=== PATIENT | female | born 1970 | race Caucasian/White ===

== ENCOUNTER 2016-12-30 00:36 | Emergency (ER) | payer MEDICAID ==
[~2016-12-30] VITALS: Ht 149.9 cm; Wt 68.0 kg
[2016-12-30 01:20] VITALS: BP_SYST 125
[2016-12-30] MEDS ORDERED: NACL 0.9% 1,000 ML IV ONE (02:21)
[2016-12-30 03:04] LABS: BASOPHILS % (AUTO) 0.3 % (0.0-2.0); EOSINOPHILS # (AUTO) 0.1 K/uL (0.0-0.4); EOSINOPHILS % (AUTO) 1.1 % (0.0-4.0); HEMATOCRIT 38.6 % (36-48); HEMOGLOBIN 12.9 g/dL (12.0-16.0); LYMPHOCYTES # (AUTO) 1.4 K/uL (1.0-5.5); LYMPHOCYTES % (AUTO) 22.3 % (20.5-51.5); MEAN CORPUSCULAR HEMOGLOBIN 29 pg (27-31); MEAN CORPUSCULAR HGB CONC 34 % (32-36); MEAN CORPUSCULAR VOLUME 87 fL (79.0-98.0); MONOCYTES # (AUTO) 0.4 K/uL (0.0-1.0); MONOCYTES % (AUTO) 6.9 % (1.7-9.3); NEUTROPHILS # (AUTO) 4.3 K/uL (1.8-7.7); NEUTROPHILS % (AUTO) 69.4 % (40.0-70.0); PLATELET COUNT (AUTO) 233 K/uL (130-430); RED BLOOD CELL COUNT(AUTO) 4.46 MIL/uL (4.2-6.2); RED CELL DISTRIBUTION WIDTH 12.6 % (9.0-15.0); WHITE BLOOD COUNT (AUTO) 6.2 K/uL (4.8-10.8)
[2016-12-30 03:07] LABS: CALCIUM 8.9 mg/dL (8.4-11.0); CHLORIDE 106 mmol/L (98-107); CREATININE 0.86 mg/dL (0.55-1.30); GLUCOSE 105 mg/dL (70-99); POTASSIUM 4.2 mmol/L (3.5-5.1); SODIUM SERUM 137 mmol/L (136-145); UREA NITROGEN, BLOOD 14 mg/dL (8-21)
[2016-12-30 03:11] LABS: INR 1.1 (0.8-1.2); PROTHROMBIN TIME 11.5 SECS (9.5-12.5)
[2016-12-30 03:12] LABS: ALANINE AMINOTRANSFERASE 41 U/L (12-78); ALBUMIN 3.6 g/dL (3.4-4.8); ASPARTATE AMINOTRANSFERASE 28 U/L (10-37); LIPASE 158 U/L (73-393); TOTAL BILIRUBIN 0.3 mg/dL (0.0-1.0); TOTAL PROTEIN, SERUM 6.9 g/dL (6.4-8.3)
[2016-12-30 03:19] LABS: ANION GAP < 3 (5-15); GFR AFRICAN AMERICAN 92 mL/min (>90)
[2016-12-30 03:43] LABS: BILIRUBIN,URINE NEGATIVE (NEGATIVE); BLOOD, URINE NEGATIVE (NEGATIVE); CLARITY/URINE CLEAR (CLEAR); COLOR,URINE YELLOW (YELLOW); GLUCOSE,URINE NEGATIVE (NEGATIVE); KETONES,URINE NEGATIVE (NEGATIVE); LEUKOCYTE ESTERASE ,URINE NEGATIVE (NEGATIVE); NITRITE, URINE NEGATIVE (NEGATIVE); PH,URINE 5.5 (5.0-8.0); PROTEIN URINE NEGATIVE (NEGATIVE); UROBILINOGEN,URINE 0.2 (0.2-1.0)
[2016-12-30] MEDS ORDERED: KETOROLAC TROMETHAMINE 30 MG VIAL IVP ONE (03:45)
[2016-12-30] MEDS ORDERED: PROCHLORPERAZINE EDISYLATE 10 MG/2 ML VIAL IM ONE (03:45)
[2016-12-30] MEDS ORDERED: PROCHLORPERAZINE EDISYLATE 10 MG/2 ML VIAL IVP ONE (03:45)
[2016-12-30] MEDS ORDERED: KETOROLAC TROMETHAMINE 60 MG/2 ML VIAL IM ONE (03:45)
[2016-12-30] MEDS ORDERED: KETOROLAC TROMETHAMINE 30 MG VIAL ONE (03:50)
[2016-12-30 05:00] VITALS: BP_SYST 120
== END 2016-12-30 05:00 | disposition home or self-care (01) ==
LOC: SED 00:36
DX: R51 Headache (principal); R11.2 Nausea with vomiting, unspecified; T40.4X5A Adverse effect of other synthetic narcotics, initial encounter; Y92.89 Other specified places as the place of occurrence of the external cause
CPT/HCPCS: 36415; 80053; 81003; 83690; 85025; 85610; 85730; 96361; 96374; 96375; 99284; J0780; J1885; J7030

== ENCOUNTER 2017-01-14 11:25 | Emergency (ER) | payer MEDICAID ==
[~2017-01-14] VITALS: Ht 149.9 cm; Wt 68.5 kg
[2017-01-14 11:25] VITALS: BP_SYST 111
--- NOTE | 2017-01-14 11:25 | NUR ---
Pt placed to ER bed 07, report given to LASHELL Butler.
[2017-01-14] MEDS ORDERED: PROCHLORPERAZINE EDISYLATE 10 MG/2 ML VIAL IVP ONE (11:30)
[2017-01-14] MEDS ORDERED: NACL 0.9% 500 ML IV ONE (11:30)
[2017-01-14] MEDS ORDERED: KETOROLAC TROMETHAMINE 30 MG VIAL IVP ONE (11:30)
[2017-01-14] MEDS ORDERED: DIPHENHYDRAMINE INJ 50 MG/ML VIAL IVP ONE (11:30)
[2017-01-14] MEDS ORDERED: DEXAMETHASONE SOD PHOSPHATE 10 MG/ML VIAL IVP ONE (11:30)
--- NOTE | 2017-01-14 11:30 | NUR ---
ER at bedside examining patient.
--- NOTE | 2017-01-14 11:34 | NUR ---
Emely murillo in [facility] - 01/14/17 at 1223 by BERT ANNETTE Romano at bedside examining patient.
--- NOTE | 2017-01-14 11:34 | NUR ---
PATIENT TO ER BED 7. AT BEDSIDE.PER THE PATIENT HAD ON AND OFF FEVER, HEADACHE AND MID ABDOMINAL PAIN FOR 3 DAYS NOW.COMPLAINING OF N/V,ABDOMINAL PAIN AND HEADACHE 9/10.NO ABDOMINAL DISTENTION;WITH ACTIVE BOWEL SOUNDS TO ALL QUADRANTS;AFEBRILE.NO OTHER COMPLAIN/INJURIES PER PATIENT AND NOTED
[2017-01-14 11:53] LABS: BASOPHILS # (AUTO) 0.2 K/uL (0.0-0.2); BASOPHILS % (AUTO) 2.8 % (0.0-2.0); EOSINOPHILS # (AUTO) 0.2 K/uL (0.0-0.4); EOSINOPHILS % (AUTO) 2.8 % (0.0-4.0); HEMATOCRIT 41.5 % (36-48); LYMPHOCYTES # (AUTO) 1.7 K/uL (1.0-5.5); MEAN CORPUSCULAR HEMOGLOBIN 29 pg (27-31); MEAN CORPUSCULAR HGB CONC 34 % (32-36); MEAN CORPUSCULAR VOLUME 85 fL (79.0-98.0); MONOCYTES # (AUTO) 0.4 K/uL (0.0-1.0); MONOCYTES % (AUTO) 7.7 % (1.7-9.3); NEUTROPHILS # (AUTO) 3.2 K/uL (1.8-7.7); NEUTROPHILS % (AUTO) 56.7 % (40.0-70.0); PLATELET COUNT (AUTO) 262 K/uL (130-430); RED BLOOD CELL COUNT(AUTO) 4.86 MIL/uL (4.2-6.2); RED CELL DISTRIBUTION WIDTH 12.8 % (9.0-15.0); WHITE BLOOD COUNT (AUTO) 5.7 K/uL (4.8-10.8)
[2017-01-14 11:56] LABS: CALCIUM 8.6 mg/dL (8.4-11.0); CREATININE 0.78 mg/dL (0.55-1.30); POTASSIUM 3.6 mmol/L (3.5-5.1)
[2017-01-14 12:00] LABS: ALBUMIN 3.9 g/dL (3.4-4.8); TOTAL BILIRUBIN 0.5 mg/dL (0.0-1.0); TOTAL PROTEIN, SERUM 7.5 g/dL (6.4-8.3)
[2017-01-14 12:21] LABS: BILIRUBIN,URINE NEGATIVE (NEGATIVE); BLOOD, URINE 3+ (NEGATIVE); CLARITY/URINE CLEAR (CLEAR); COLOR,URINE YELLOW (YELLOW); GLUCOSE,URINE NEGATIVE (NEGATIVE); KETONES,URINE NEGATIVE (NEGATIVE); LEUKOCYTE ESTERASE ,URINE NEGATIVE (NEGATIVE); NITRITE, URINE NEGATIVE (NEGATIVE); PROTEIN URINE NEGATIVE (NEGATIVE); UROBILINOGEN,URINE 0.2 (0.2-1.0)
[2017-01-14 12:37] LABS: BACTERIA,URINE FEW /HPF (None Seen); MUCUS,URINE None Seen /LPF (None Seen); WBC,URINE 0-3 /HPF (0-3)
[2017-01-14] MEDS ORDERED: MAG HYDROX/AL HYDROX/SIMETH 30 ML, LIDOCAINE VISCOUS 2% 15ML (PO) 10 ML, BELLADONNA ALK... PO ONE ×6 (12:45)
--- NOTE | 2017-01-14 13:25 | NUR ---
Patient given written and verbal discharge instructions and verbalizes understanding. ER MD discussed with patient the results and treatment provided. Patient in stable condition. ID arm band removed. IV catheter removed intact and dressing applied, no active bleeding. Rx of Motrin, zofran given. Patient educated on pain management and to follow up with PMD. Pain Scale 3/10. Discussed with patient need to follow with establish relationship with PCP and the possiblity of following with a specialist. Opportunity for questions provided and answered.
[2017-01-14 13:28] VITALS: BP_SYST 136
== END 2017-01-14 13:28 | disposition home or self-care (01) ==
LOC: SED 11:25
DX: R51 Headache (principal); R11.2 Nausea with vomiting, unspecified; R19.7 Diarrhea, unspecified; R10.13 Epigastric pain
CPT/HCPCS: 36415; 80053; 81000; 81025; 83690; 85025; 96361; 96374; 96375; 99284; J0780; J1100; J1885; J2001; J7040

== ENCOUNTER 2017-04-05 22:26 | Emergency (ER) | payer MEDICAID ==
[~2017-04-05] VITALS: Ht 149.9 cm; Wt 68.9 kg
[2017-04-05 22:37] VITALS: BP_SYST 128
[2017-04-06] MEDS ORDERED: IBUPROFEN 600 MG TABLET PO ONE
[2017-04-06 00:10] VITALS: BP_SYST 125
== END 2017-04-06 00:10 | disposition home or self-care (01) ==
LOC: SED 22:26
DX: S83.412A Sprain of medial collateral ligament of left knee, initial encounter (principal); W01.0XXA Fall on same level from slipping, tripping and stumbling without subsequent striking against object, initial encounter; Y93.89 Activity, other specified; Y92.89 Other specified places as the place of occurrence of the external cause; Y99.8 Other external cause status
CPT/HCPCS: 73564; 99284

== ENCOUNTER 2017-04-17 21:49 | Emergency (ER) | payer MEDICAID ==
[~2017-04-17] VITALS: Ht 152.4 cm; Wt 68.0 kg
[2017-04-17 21:50] VITALS: BP_SYST 113
--- NOTE | 2017-04-17 21:50 | NUR ---
Patient to ER bed 7 to gown for evaluation. Side rails up. Report given to Adriane LOBO.
--- NOTE | 2017-04-17 21:57 | NUR ---
Patient returns for ER C/O left knee continuous pain 02/20 when walking and she is requesting additional days off work. Patient was instructed when the injury occured to see primary physician and an orthopedic doctor for continuing treatment. AAOx4, unlabored breathing, no signs of acute distress.
--- NOTE | 2017-04-17 22:04 | NUR ---
ANNETTE HOLBROOK Kwaw at bedside evaluating the patient
[2017-04-17 22:20] VITALS: BP_SYST 121
--- NOTE | 2017-04-17 22:20 | NUR ---
Patient given written and verbal discharge instructions and verbalizes understanding. ER MD Weaver discussed with patient the results and treatment provided. Patient in stable condition. ID arm band removed. Rx of Naproxen given. Patient educated on pain management and to follow up with PMD. Pain Scale 0/10. Opportunity for questions provided and answered.
== END 2017-04-17 22:20 | disposition home or self-care (01) ==
LOC: SED 21:49
DX: S83.92XA Sprain of unspecified site of left knee, initial encounter (principal); W19.XXXA Unspecified fall, initial encounter; Y93.89 Activity, other specified; Y92.89 Other specified places as the place of occurrence of the external cause; Y99.8 Other external cause status
CPT/HCPCS: 99282

== ENCOUNTER 2017-07-06 17:46 | Emergency (ER) | payer MEDICAID, OTHER ==
[~2017-07-06] VITALS: Ht 160 cm; Wt 70.3 kg
[2017-07-06 17:55] VITALS: BP_SYST 134
[2017-07-06 19:22] VITALS: BP_SYST 134
== END 2017-07-06 18:55 | disposition home or self-care (01) ==
LOC: SED 17:46
DX: R21 Rash and other nonspecific skin eruption (principal); R03.0 Elevated blood-pressure reading, without diagnosis of hypertension
CPT/HCPCS: 99283

== ENCOUNTER 2019-01-14 17:52 | Emergency (ER) | payer MEDICAID ==
[~2019-01-14] VITALS: Ht 149.9 cm; Wt 80.3 kg
[2019-01-14 18:02] VITALS: BP_SYST 127
--- NOTE | 2019-01-14 18:07 | NUR ---
Patient triaged and placed in waiting room. VSS and patient appears in no acute distress at this time. Accompanied by friend, awaiting available bed, and MD notified of need for MSE.
--- NOTE | 2019-01-14 18:53 | NUR ---
Patient to ER bed 1 to gown for evaluation. Side rails up.
--- NOTE | 2019-01-14 19:00 | NUR ---
Patient brought in by friend complaining of lower back pain x 3 days non traumatic. Reports pain as sharp and 8/10. No other complaints/injuries per patient or as noted. Will continue to monitor.
--- NOTE | 2019-01-14 19:05 | NUR ---
ER PA Oneill at bedside examining patient.
[2019-01-14] MEDS ORDERED: ONDANSETRON 4 MG ODT TAB PO ONE (19:15)
[2019-01-14] MEDS ORDERED: KETOROLAC TROMETHAMINE 30 MG VIAL IM ONE (19:15)
[2019-01-14] MEDS ORDERED: HYDROcodone/ACETAMIN 5-325 MG TAB (NORCO/ VICODIN) PO ONE (19:15)
--- NOTE | 2019-01-14 19:23 | NUR ---
Patient refusing norco and zofran at this time. PA notified.
[2019-01-14 20:28] VITALS: BP_SYST 122
--- NOTE | 2019-01-14 20:28 | NUR ---
Patient given written and verbal discharge instructions and verbalizes understanding. ER MD discussed with patient the results and treatment provided. Patient in stable condition. ID arm band removed. Rx of [place], Motrin, Medrol given. Patient educated on pain management and to follow up with PMD. Pain Scale 2/10. Opportunity for questions provided and answered. Medication side effect fact sheet provided.
== END 2019-01-14 20:28 | disposition home or self-care (01) ==
LOC: SED 17:52
DX: G89.29 Other chronic pain (principal); M54.5 Low back pain
CPT/HCPCS: 72100; 81002; 81025; 96372; 99283; J1885; Q0162

== ENCOUNTER 2019-08-17 11:21 | Emergency (ER) | payer MEDICAID ==
[~2019-08-17] VITALS: Ht 149.9 cm; Wt 78.5 kg
[2019-08-17 11:27] VITALS: BP_SYST 151
[2019-08-17 12:02] LABS: BILIRUBIN,URINE 1+ (NEGATIVE); BLOOD, URINE 3+ (NEGATIVE); CLARITY/URINE TURBID (CLEAR); COLOR,URINE YELLOW (YELLOW); GLUCOSE,URINE NEGATIVE (NEGATIVE); KETONES,URINE NEGATIVE (NEGATIVE); LEUKOCYTE ESTERASE ,URINE 3+ (NEGATIVE); NITRITE, URINE NEGATIVE (NEGATIVE); PROTEIN URINE 2+ (NEGATIVE); UROBILINOGEN,URINE 0.2 (0.2-1.0)
--- NOTE | 2019-08-17 12:07 | NUR ---
Patient to ER bed 7 to gown for evaluation. Side rails up. Report given to LASHELL Scherer.
[2019-08-17 12:09] LABS: RBC,URINE 20-50 /HPF (0-3); WBC,URINE >100 /HPF (0-3)
[2019-08-17 12:10] LABS: BACTERIA,URINE MODERATE /HPF (None Seen)
--- NOTE | 2019-08-17 12:10 | NUR ---
Pt brought by self,A&Ox4, pt presents to ER with suprapubic pain, urinary frequency/pain/ hamaturia, afebrile, skin pink and warm, cap refill <3, VSS, respirations even and unlabored, cap refill <3.
--- NOTE | 2019-08-17 13:08 | NUR ---
ER at bedside examining patient.
--- NOTE | 2019-08-17 13:25 | NUR ---
ER Dr. Worthy at bedside performing pelvic exam, Niesha as anodic treater.
[2019-08-17] MEDS ORDERED: KETOROLAC TROMETHAMINE 60 MG/2 ML VIAL IM ONE (13:30)
--- NOTE | 2019-08-17 14:20 | NUR ---
Ultrasound done as ordered by Dr. Worthy. Patient tolerated the procedure well.
[2019-08-17 15:26] VITALS: BP_SYST 151
--- NOTE | 2019-08-17 15:26 | NUR ---
Patient given written and verbal discharge instructions and verbalizes understanding. ER MD discussed with patient the results and treatment provided. Patient in stable condition. ID arm band removed. Rx of Cipro, Tylenol #3 and Pyridium given. Patient educated on pain management and to follow up with PMD. Pain Scale 0/10. Opportunity for questions provided and answered. Medication side effect fact sheet provided.
--- NOTE | 2019-08-21 09:03 | NUR ---
RECEIVED +URINE CULTURE FROM LAB AND DISCUSSED CASE WITH DR SLOAN, NO FURTHER ACTIONS NEEDED.
== END 2019-08-17 15:26 | disposition home or self-care (01) ==
LOC: SED 11:21
DX: N83.202 Unspecified ovarian cyst, left side (principal); N39.0 Urinary tract infection, site not specified
CPT/HCPCS: 76856; 81000; 87086; 87186; 96372; 99284; J1885

== ENCOUNTER 2019-09-15 11:35 | Emergency (ER) | payer MEDICAID ==
[~2019-09-15] VITALS: Ht 152.4 cm; Wt 77.1 kg
--- NOTE | 2019-09-15 12:25 | NUR ---
pt to wr
--- NOTE | 2019-09-15 16:50 | NUR ---
Patient to ER bed h1 to gown for evaluation. Side rails up.
--- NOTE | 2019-09-15 16:51 | NUR ---
ER at bedside examining patient.
[2019-09-15 16:59] VITALS: BP_SYST 124
--- NOTE | 2019-09-15 16:59 | NUR ---
Patient given written and verbal discharge instructions and verbalizes understanding. ER MD discussed with patient the results and treatment provided. Patient in stable condition. ID arm band removed. Rx of zithromax,tylenol,naposyn,robitussin given. Patient educated on pain management and to follow up with PMD. Pain Scale 2 Opportunity for questions provided and answered. Medication side effect fact sheet provided.
== END 2019-09-15 16:59 | disposition home or self-care (01) ==
LOC: SED 11:35
DX: R51 Headache (principal); J11.1 Influenza due to unidentified influenza virus with other respiratory manifestations; M79.18 Myalgia, other site; J40 Bronchitis, not specified as acute or chronic; Z88.5 Allergy status to narcotic agent
CPT/HCPCS: 36415; 86710; 99283

== ENCOUNTER 2020-01-16 12:11 | Emergency (ER) | payer MEDICAID ==
[~2020-01-16] VITALS: Ht 157.5 cm; Wt 74.8 kg
[2020-01-16 12:30] VITALS: BP_SYST 129
--- NOTE | 2020-01-16 12:50 | NUR ---
CALM, ALERT, RESP UNLABORED, C/O SUDDENT ONSET OD ABD PAIN, N,V,D THIS AM UPON ARRIVAL COMMUNICATES CLEARLY , RESP UNLABORED, SKIN WARM AND DRY,.. STEADY GAIT
[2020-01-16] MEDS ORDERED: NACL 0.9% 1,000 ML IV ONE (13:00)
[2020-01-16] MEDS ORDERED: ONDANSETRON HCL 4 MG/2 ML VIAL IVP ONE (13:00)
--- NOTE | 2020-01-16 13:00 | NUR ---
DR GONZALEZ IN TO ASSESS
[2020-01-16 13:13] LABS: BASOPHILS % (AUTO) 0.5 % (0.0-2.0); EOSINOPHILS # (AUTO) 0.1 K/uL (0.0-0.4); EOSINOPHILS % (AUTO) 0.9 % (0.0-4.0); HEMATOCRIT 40.3 % (36-48); HEMOGLOBIN 13.6 g/dL (12.0-16.0); LYMPHOCYTES # (AUTO) 1.4 K/uL (1.0-5.5); LYMPHOCYTES % (AUTO) 17.9 % (20.5-51.5); MEAN CORPUSCULAR HEMOGLOBIN 29 pg (27-31); MEAN CORPUSCULAR HGB CONC 34 % (32-36); MEAN CORPUSCULAR VOLUME 86 fL (79.0-98.0); MONOCYTES # (AUTO) 0.5 K/uL (0.0-1.0); MONOCYTES % (AUTO) 5.8 % (1.7-9.3); NEUTROPHILS % (AUTO) 74.9 % (40.0-70.0); PLATELET COUNT (AUTO) 266 K/uL (130-430); RED BLOOD CELL COUNT(AUTO) 4.69 MIL/uL (4.2-6.2); RED CELL DISTRIBUTION WIDTH 13.8 % (9.0-15.0)
[2020-01-16 13:28] LABS: CALCIUM 8.4 mg/dL (8.4-11.0); CREATININE 0.81 mg/dL (0.55-1.30); POTASSIUM 3.7 mmol/L (3.5-5.1)
[2020-01-16 13:32] LABS: BILIRUBIN,URINE 1+ (NEGATIVE); BLOOD, URINE NEGATIVE (NEGATIVE); CLARITY/URINE SL CLOUDY (CLEAR); GLUCOSE,URINE 1+ (NEGATIVE); KETONES,URINE 1+ (NEGATIVE); LEUKOCYTE ESTERASE ,URINE TRACE (NEGATIVE); NITRITE, URINE POSITIVE (NEGATIVE); PROTEIN URINE 1+ (NEGATIVE)
[2020-01-16 13:33] LABS: ALBUMIN 3.6 g/dL (3.4-4.8); TOTAL BILIRUBIN 0.4 mg/dL (0.0-1.0)
[2020-01-16 13:35] LABS: COLOR,URINE RED (YELLOW)
--- NOTE | 2020-01-16 13:39 | NUR ---
ALERT, CALM, RESP UNLABORED, DENIES N/V. NAD, RESULTS OF W/U PENDING
[2020-01-16 13:41] LABS: BACTERIA,URINE FEW /HPF (None Seen); RBC,URINE 0-3 /HPF (0-3); WBC,URINE 0-3 /HPF (0-3)
[2020-01-16 15:04] VITALS: BP_SYST 114
--- NOTE | 2020-01-16 15:08 | NUR ---
Patient given written and verbal discharge instructions and verbalizes understanding. ER MD discussed with patient the results and treatment provided. Patient in stable condition. ID arm band removed. IV catheter removed intact and dressing applied, no active bleeding. Rx of LAMOTIL,ZOFRAN given. Patient educated on pain management and to follow up with PMD. Pain Scale 4/10. Opportunity for questions provided and answered. Medication side effect fact sheet provided.
== END 2020-01-16 15:08 | disposition home or self-care (01) ==
LOC: SED 12:11
DX: K52.9 Noninfective gastroenteritis and colitis, unspecified (principal); R11.2 Nausea with vomiting, unspecified; N39.0 Urinary tract infection, site not specified; E03.9 Hypothyroidism, unspecified; Z88.5 Allergy status to narcotic agent; Z88.6 Allergy status to analgesic agent
CPT/HCPCS: 36415; 80053; 81000; 81025; 83690; 85025; 87086; 96361; 96374; 99283; J2405; J7030

== ENCOUNTER 2022-02-08 22:39 | Emergency (ER) | payer MEDICAID ==
[~2022-02-08] VITALS: Ht 180.3 cm; Wt 75.3 kg
[2022-02-08 22:41] VITALS: BP_SYST 148
--- NOTE | 2022-02-08 22:44 | NUR ---
Patient to ER bed 06 to gown for evaluation. Side rails up.
--- NOTE | 2022-02-08 22:49 | NUR ---
ER at bedside examining patient.
[2022-02-08] MEDS ORDERED: KETOROLAC TROMETHAMINE 60 MG/2 ML VIAL IM ONE (23:00)
[2022-02-08] MEDS ORDERED: NAPR-690 PO (23:58)
--- NOTE | 2022-02-09 00:15 | NUR ---
Patient given written and verbal discharge instructions by DR Weaver and verbalizes understanding. ER MD discussed with patient the results and treatment provided. Patient in stable condition. ID arm band Rx of Naproxen given. Patient educated on pain management and to follow up with PMD. Pain Scale 4/10. Opportunity for questions provided and answered. Medication side effect fact sheet provided.
[2022-02-09 00:16] VITALS: BP_SYST 140
== END 2022-02-09 00:16 | disposition home or self-care (01) ==
LOC: SED 22:39
DX: S43.402A Unspecified sprain of left shoulder joint, initial encounter (principal); S43.401A Unspecified sprain of right shoulder joint, initial encounter; Z88.5 Allergy status to narcotic agent; Z88.6 Allergy status to analgesic agent; X58.XXXA Exposure to other specified factors, initial encounter; Y93.89 Activity, other specified; Y92.89 Other specified places as the place of occurrence of the external cause; Y99.8 Other external cause status
CPT/HCPCS: 71045; 93005; 96372; 99283; J1885

== ENCOUNTER 2023-08-19 20:02 | Emergency (ER) | payer MEDICAID ==
[~2023-08-19] VITALS: Ht 149.9 cm; Wt 73.5 kg
[~2023-08-19 20:02] MED LIST: MAGN296S8 PO; NA P133E41 RC; NAPR-690 PO
[2023-08-19] MEDS ORDERED: DIPHENHYDRAMINE INJ 50 MG/ML VIAL IVP ONE (20:15)
[2023-08-19] MEDS ORDERED: METOCLOPRAMIDE HCL 10 MG/2 ML VIAL IVP ONE (20:15)
[2023-08-19 20:27] VITALS: BP_SYST 151; PULSE 75; RESP 18; TEMP 97.3; O2SAT 99
[2023-08-19 20:59] LABS: BASOPHILS % (AUTO) 0.5 % (0.0-2.0); EOSINOPHILS # (AUTO) 0.2 K/uL (0.0-0.4); EOSINOPHILS % (AUTO) 2.6 % (0.0-4.0); HEMATOCRIT 41.1 % (36-48); HEMOGLOBIN 14.1 g/dL (12.0-16.0); LYMPHOCYTES # (AUTO) 2.1 K/uL (1.0-5.5); LYMPHOCYTES % (AUTO) 34.8 % (20.5-51.5); MEAN CORPUSCULAR HEMOGLOBIN 29 pg (27-31); MEAN CORPUSCULAR HGB CONC 34 % (32-36); MEAN CORPUSCULAR VOLUME 86 fL (79.0-98.0); MONOCYTES # (AUTO) 0.4 K/uL (0.0-1.0); MONOCYTES % (AUTO) 7.1 % (1.7-9.3); NEUTROPHILS # (AUTO) 3.3 K/uL (1.8-7.7); PLATELET COUNT (AUTO) 241 K/uL (130-430); RED BLOOD CELL COUNT(AUTO) 4.81 MIL/uL (4.2-6.2); RED CELL DISTRIBUTION WIDTH 14.3 % (9.0-15.0); WHITE BLOOD COUNT (AUTO) 5.9 K/uL (4.8-10.8)
[2023-08-19 21:02] LABS: ERYTHROCYTE SEDIMENTATION RATE 27 MM/HR (0-20)
[2023-08-19 21:06] LABS: CALCIUM 9.5 mg/dL (8.4-11.0); CREATININE 0.65 mg/dL (0.55-1.30); POTASSIUM 3.3 mmol/L (3.5-5.1)
[2023-08-19] MEDS ORDERED: IBUP-1969 PO (21:39)
[2023-08-19] MEDS ORDERED: TRAM50TA2 PO (21:39)
[2023-08-19 21:54] VITALS: BP_SYST 151; PULSE 71; RESP 16; TEMP 98.2; O2SAT 96
== END 2023-08-19 21:48 | disposition home or self-care (01) ==
LOC: SED 20:02
DX: R51.9 Headache, unspecified (principal); Z88.5 Allergy status to narcotic agent; Z79.899 Other long term (current) drug therapy
CPT/HCPCS: 99285; 96374; 70450; 96375; 80048; 85025; 85651; 36415; 76376; 81025; 82397; J1200; J2765